=== PATIENT | female | born 1960 | race Caucasian/White ===

== ENCOUNTER 2019-11-25 07:24 | Day surgery (SDC) | payer OTHER ==
[~2019-11-25] VITALS: Ht 157.5 cm; Wt 55.0 kg
[~2019-11-25 07:24] MED LIST: ALBU90OI INH; ASPI81CH PO; ATOR10 PO; Cilostazol50 MG PO; FLUT110OIA INH; HYDR1TAB94 PO; LEVO750 PO; NAPR550 PO; Percocet 5-3251 EACH PO; Plavix75 MG PO; Prinivil10 MG PO; ROSU5 PO; TIOT18 INH; Ventolin/Prove6.7 GM INH
--- NOTE | 2019-11-25 12:05 | NUR ---
PT MEDICATED WITH IV ATIVAN PER ORDERS, HAS ALSO BEEN MEDICATED WITH IV FENTANYL AND IV VERSED SINCE PROCEDURE FOR C/O SEVERE LEFT GROIN PAIN. DR DISLA AWARE OF PT'S PAIN, HAS REASSESSED PT POST PROCEDURE.
--- NOTE | 2019-11-25 12:10 | NUR ---
PT MEDICATED WITH 15MG TORADOL IV PER ORDERS. PT HAS CONTINUED TO C/O SEVERE PAIN IN LEFT GROIN AREA. DR DISLA AWARE OF PT C/O PAIN. BILATERAL GROIN SITES SOFT, NO SWELLING OR BLEEDING NOTED.
--- NOTE | 2019-11-25 12:55 | NUR ---
PT SLEEPING, EASILY ROUSES TO VERBAL STIMULI. STATES PAIN IN LEFT GROIN IS ALMOST GONE AND THAT SHE IS MUCH MORE COMFORTABLE. CALL LIGHT IN REACH
--- NOTE | 2019-11-25 13:20 | NUR ---
PT STATES LEFT GROIN AREA CONTINUES TO FEEL "MUCH BETTER." CURRENTLY EATING LUNCH IN NO DISTRESS, CALL LIGHT IN REACH.
--- NOTE | 2019-11-25 14:28 | NUR ---
DISCHARGE GONE OVER WITH PT, VERBALIZES UNDERSTANDING OF INSTRUCTIONS. PT UP WALKING AROUND, UP TO BATHROOM. PT CALLED FOR RIDE TO PICK HER UP. SALINE LOCK OUT WITH CATHETER INTACT. BOTH GROIN SITES WITHOUT HEMATOMA OR SWELLING. BOTH SITES SOFT UPON PALPATION. AWAITING RIDE AT THIS TIME.
--- NOTE | 2019-11-25 14:49 | NUR ---
PT TO PRIVATE VEHICLE PER W/C WITH ONE STAFF.
== END 2019-11-25 14:59 | disposition home or self-care (01) ==
LOC: MHTC 07:24
DX: I70.213 Atherosclerosis of native arteries of extremities with intermittent claudication, bilateral legs (principal)
CPT/HCPCS: 37221; 37222; 75625; 75716; 75774; 99152; 99153; C1725; C1760; C1769; C1874; C1876; C1887; C1894; J1644; J1885; J2060; J2250; J3010; J7030; Q9967

== ENCOUNTER → 2020-07-17 | Outpatient (CLI) | payer OTHER ==
[2020-07-24 14:09] LABS: COTININE <10.0 ng/mL (.); NICOTINE <10.0 ng/mL (.)
== END | disposition home or self-care (01) ==
LOC: LAB SHORT 15:09 → LAB 15:09
PROVIDERS: Ophthalmology
DX: F17.211 Nicotine dependence, cigarettes, in remission (principal)
CPT/HCPCS: G0480